=== PATIENT | female | born 1980 | race American Indian/Alaskan Native ===

== ENCOUNTER 2016-06-20 17:20 | Emergency (ER) | payer MEDICAID ==
[2016-06-20] MEDS ORDERED: TORADOL IV ONE (20:01)
--- NOTE | 2016-06-20 20:07 | Emergency Department Report ---
ED ENT HPI - General Chief complaint: Sore Throat Stated complaint: SWOLLEN THROAT/NECK/CHEST/ARMS Time Seen by Provider: 06/20/16 19:46 Source: patient Mode of arrival: Ambulatory Limitations: No Limitations - History of Present Illness Initial comments: 36-year-old female with no past medical history comes in for complaint of sore throat times couple of days she complains of lower jaw gums under her chin throat. Swelling since last night. She does report that she's been exposed to mold and the wall. She denies any nausea vomiting no fever no chills. She does report she is not able to swallow she reports that her voice is been kind of muffled she's not able to open her jaw. She reports that she's been taking Motrin 800 mg without any resolution of pain. MD complaint: tooth pain, sore throat, difficulty swallowing - Related Data Previous Rx's Medication Instructions Recorded Last Taken Type Acetaminophen/Codeine [Tylenol #3] 1 tab PO Q4HR PRN #20 tablet 06/20/16 Unknown Rx Allergies Allergy/AdvReac Type Severity Reaction Status Date / Time aspirin Allergy Hives Verified 06/20/16 17:57 Latex, Natural Rubber Allergy Anaphylaxis Verified 06/20/16 17:57 shellfish derived Allergy Shortness Verified 06/20/16 17:57 of Breath ED Dental HPI - General Chief complaint: Sore Throat Stated complaint: SWOLLEN THROAT/NECK/CHEST/ARMS Time Seen by Provider: 06/20/16 19:46 Source: patient Mode of arrival: Ambulatory Limitations: No Limitations - Related Data Previous Rx's Medication Instructions Recorded Last Taken Type Acetaminophen/Codeine [Tylenol #3] 1 tab PO Q4HR PRN #20 tablet 06/20/16 Unknown Rx Allergies Allergy/AdvReac Type Severity Reaction Status Date / Time aspirin Allergy Hives Verified 06/20/16 17:57 Latex, Natural Rubber Allergy Anaphylaxis Verified 06/20/16 17:57 shellfish derived Allergy Shortness Verified 06/20/16 17:57 of Breath ED Review of Systems ROS: Stated complaint: SWOLLEN THROAT/NECK/CHEST/ARMS Other details as noted in HPI Constitutional: denies: chills, fever ENT: throat pain, dental pain Respiratory: denies: cough Cardiovascular: denies: chest pain ED Past Medical Hx - Past Medical History Hx Hypertension: No Hx Heart Attack/AMI: No Hx Congestive Heart Failure: No Hx Diabetes: No Hx Deep Vein Thrombosis: No Hx Pulmonary Embolism: No Hx GERD: No Hx Liver Disease: No Hx Renal Disease: No Hx Sickle Cell Disease: No Hx Arthritis: No Hx Headaches / Migraines: No Hx Seizures: No Hx Kidney Stones: No Hx Asthma: Yes Hx COPD: No Hx Tuberculosis: No Hx Dementia: No Hx HIV: No Additional medical history: endometriosis, fibroids. anemia - Surgical History Hx Coronary Stent: No Hx Open Heart Surgery: No Hx Pacemaker: No Hx Internal Defibrillator: No Hx Cholecystectomy: No Hx Appendectomy: No Hx Breast Surgery: No Additional Surgical History: tubal ligation - Social History Smoking Status: Never Smoker Substance Use Type: Alcohol - Medications Home Medications: Home Medications Medication Instructions Recorded Confirmed Last Taken Type Acetaminophen/Codeine [Tylenol #3] 1 tab PO Q4HR PRN #20 tablet 06/20/16 Unknown Rx ED Physical Exam - General Limitations: No Limitations General appearance: alert, in no apparent distress - Head Head exam: Present: atraumatic, normocephalic - Eye Eye exam: Present: normal appearance, PERRL, EOMI - Expanded ENT Exam Expanded Mouth exam: Present: trismus, muffled voice, tongue normal Teeth exam: Present: dental caries, gingival enlargement Throat exam: Positive: tonsillar erythema, tonsillomegaly - Neck Neck exam: Present: tenderness, lymphadenopathy ED Course Vital Signs 06/20/16 17:55 Temperature 99.4 F Pulse Rate 70 Respiratory 19 Rate Blood Pressure 116/64 O2 Sat by Pulse 100 Oximetry ED Medical Decision Making - Lab Data Result diagrams: 06/20/16 20:44 06/20/16 20:44 - Radiology Data Radiology results: image reviewed EXAM: CT NECK W CON HISTORY: sore throat with muffle voice TECHNIQUE: Helical CT was performed from the skull base to the thoracic inlet after the administration of iodinated intravenous contrast. PRIORS: None. FINDINGS: The tonsils are diffusely mildly swollen. There is no evidence of peritonsillar or intratonsillar abscess. There are mildly enlarged submandibular and submental lymph nodes most likely reactive in nature. The parotid and submandibular glands appear normal. The thyroid appears normal. The vascular structures appear normal. The bones are unremarkable. No abnormal soft tissue masses are demonstrated. IMPRESSION: Findings are consistent with tonsillitis. No evidence of peritonsillar or intratonsillar abscess. Mild submandibular and submental adenopathy likely reactive in nature. - Medical Decision Making This patient has been evaluated by this provider in fast track. We will order a CT scan of the neck. Ordered a CBC CMP urine as well as Decadron 8 mg IV Toradol 15 mg IV. As Benadryl 50mg iv. Critical care attestation.: If time is entered above; I have spent that time in minutes in the direct care of this critically ill patient, excluding procedure time. ED Disposition Clinical Impression: Acute erythematous tonsillitis Disposition: DISCHARGED TO HOME OR SELFCARE Is pt being admited?: No Does the pt Need Aspirin: No Condition: Stable Instructions: Tonsillitis (ED) Prescriptions: Acetaminophen/Codeine [Tylenol #3] 1 tab PO Q4HR PRN #20 tablet PRN Reason: Pain Referrals: TRACIE SIN MD [Primary Care Provider] - 3-5 Days Forms: Work/School Release Form(ED)
[2016-06-20] MEDS ORDERED: DECADRON IV ONE (20:19)
[2016-06-20] MEDS ORDERED: BENADRYL ONE (20:48)
[2016-06-20] MEDS ORDERED: BENADRYL IV ONE (21:01)
[2016-06-20 21:09] LABS: Hematocrit 36.4 % (30.3-42.9); Hemoglobin 11.8 gm/dl (10.1-14.3); Mean Corpuscular HGB Conc 33 % (30-34); Mean Corpuscular Volume 75 fl (79-97); Platelet Count 310 K/mm3 (140-440); Red Blood Count 4.83 M/mm3 (3.65-5.03); Red Cell Distribution Width 17.1 % (13.2-15.2)
[2016-06-20 21:20] LABS: Mean Corpuscular Hemoglobin 25 pg (28-32)
[2016-06-20 22:25] LABS: BUN/Creatinine Ratio 21.25; Blood Urea Nitrogen 17 mg/dL (7-17); Calcium 8.9 mg/dL (8.4-10.2); Carbon Dioxide 22 mmol/L (22-30); Chloride 102.1 mmol/L (98-107); Glucose 92 mg/dL (65-100); Potassium 3.9 mmol/L (3.6-5.0); Sodium 137 mmol/L (137-145)
[2016-06-20 22:30] LABS: Anion Gap 17 mmol/L
--- NOTE | 2016-06-20 23:16 | Cat Scan Report ---
FINAL REPORT EXAM: CT NECK W CON HISTORY: sore throat with muffle voice TECHNIQUE: Helical CT was performed from the skull base to the thoracic inlet after the administration of iodinated intravenous contrast. PRIORS: None. FINDINGS: The tonsils are diffusely mildly swollen. There is no evidence of peritonsillar or intratonsillar abscess. There are mildly enlarged submandibular and submental lymph nodes most likely reactive in nature. The parotid and submandibular glands appear normal. The thyroid appears normal. The vascular structures appear normal. The bones are unremarkable. No abnormal soft tissue masses are demonstrated. IMPRESSION: Findings are consistent with tonsillitis. No evidence of peritonsillar or intratonsillar abscess. Mild submandibular and submental adenopathy likely reactive in nature.
[2016-06-20 23:54] VITALS: BP 120/78
== END 2016-06-20 23:52 | disposition home or self-care (01) ==
LOC: ED 17:20
DX: J03.90 Acute tonsillitis, unspecified (principal); J45.909 Unspecified asthma, uncomplicated; Z98.51 Tubal ligation status
CPT/HCPCS: 36415; 70491; 80048; 81025; 85027; 87116; 87430; 96374; 96375; 99284; J1100; J1200; J1885; Q9967

== ENCOUNTER 2016-10-12 23:44 | Emergency (ER) | payer MEDICAID ==
--- NOTE | 2016-10-13 01:00 | XRay Report ---
FINAL REPORT EXAM: XR HAND 3 LT HISTORY: numb, swelling, prior impact, send for report COMPARISON: None available. FINDINGS: Three views of the left hand obtained. Mild soft tissue swelling. Bony structures are intact. Joint spaces are preserved. No acute fracture dislocation. IMPRESSION: No acute bony abnormality.
[2016-10-13] MEDS ORDERED: NORCO 10/325 PO ONE (05:02)
--- NOTE | 2016-10-13 05:02 | Emergency Department Report ---
Upper Extremity - HPI Chief Complaint: Extremity Injury, Upper Stated Complaint: LEFT HAND SWELLING/PAIN Time Seen by Provider: 10/13/16 04:24 Upper Extremity: Left Hand Severity: mild Symptoms: Yes Pain with Movement, Yes Limited Range of Movement, Yes Swelling, No Deformity, No Numbness, No Weakness, No Bruising/Ecchymosis, No Laceration or Abrasion Other History: 36-year-old female presents with complaint of left hand pain. Patient states that 2 weeks ago she injured her hand in a accident at work. As per patient a package of sodas briefly crushed her hand. She states that she reported this to her workplace who sent her to Workmen's [employer]. physician and regulatory specialist. Patient states she had x-rays which were negative for fractures. Patient states that she has had difficulty moving her left distal fingers for the last 2 weeks. Patient states that she was taking Benadryl but no other medicines for pain. When I questioned patient on why she was taking Benadryl for pain because that does not make sense patient was unable to give me a clear answer why. Patient states that none of the physician she saw prescribed her any pain medicine. Patient denies any fever or chills. ED Review of Systems ROS: Stated complaint: LEFT HAND SWELLING/PAIN Other details as noted in HPI Constitutional: denies: chills, fever Eyes: denies: eye pain, eye discharge, vision change ENT: denies: ear pain, throat pain Respiratory: denies: cough, shortness of breath, wheezing Cardiovascular: denies: chest pain, palpitations Endocrine: no symptoms reported Gastrointestinal: denies: abdominal pain, nausea, diarrhea Genitourinary: denies: urgency, dysuria, discharge Musculoskeletal: as per HPI, joint swelling, arthralgia. denies: back pain Skin: denies: rash, lesions Neurological: denies: headache, weakness, paresthesias Psychiatric: denies: anxiety, depression Hematological/Lymphatic: denies: easy bleeding, easy bruising ED Past Medical Hx - Past Medical History Previous Medical History?: Yes Hx Hypertension: No Hx Heart Attack/AMI: No Hx Congestive Heart Failure: No Hx Diabetes: No Hx Deep Vein Thrombosis: No Hx Pulmonary Embolism: No Hx GERD: No Hx Liver Disease: No Hx Renal Disease: No Hx Sickle Cell Disease: No Hx Arthritis: No Hx Headaches / Migraines: No Hx Seizures: No Hx Kidney Stones: No Hx Asthma: Yes Hx COPD: No Hx Tuberculosis: No Hx Dementia: No Hx HIV: No Additional medical history: endometriosis, fibroids. anemia - Surgical History Past Surgical History?: Yes Hx Coronary Stent: No Hx Open Heart Surgery: No Hx Pacemaker: No Hx Internal Defibrillator: No Hx Cholecystectomy: No Hx Appendectomy: No Hx Breast Surgery: No Additional Surgical History: tubal ligation - Social History Smoking Status: Never Smoker Substance Use Type: None - Medications Home Medications: Home Medications Medication Instructions Recorded Confirmed Last Taken Type Acetaminophen/Codeine [Tylenol #3] 1 tab PO Q4HR PRN #20 tablet 06/20/16 Unknown Rx HYDROcodone/APAP 5-325 [[place] 1 each PO Q6HR PRN #15 tablet 10/13/16 Unknown Rx 5/325] Upper Extremity Exam - Exam General: Vital signs noted. No distress. Alert and acting appropriately. Head and Torso: No HEENT Abnormality, No Neck Tenderness, No Chest/Lungs Abnormality, No Abdominal Tenderness, No Back Tenderness Shoulder Exam: Yes Normal Range of Motion in Shoulder, No Shoulder Tenderness, No Clavicle Tenderness, No Shoulder Deformity, No AC Joint Tenderness Arm Exam: No Arm/Humerus Tenderness, No Arm Deformity Elbow: No Elbow Tenderness, No Normal Range of Motion in Elbow, No Elbow Deformity Forearm: No Forearm Tenderness, No Forearm Deformity, No Pain with Pronation, No Pain with Supination Wrist: Yes Normal ROM in Wrist (wrist flexion and extension intact), No Wrist Tenderness, No Wrist Deformity, No Snuffbox Tenderness (she does not have any snuffbox tenderness), No Pain with Axial Thumb Compression Hand: Yes Normal ROM in Digit(s), No Hand Tenderness, No Hand Deformity, No Digit Tenderness, No Digit(s) Deformity, No Tendon Dysfunction CMS Exam: Yes Normal Distal Pulses (the radial and brachial pulses strong to palpation), Yes Normal Capillary Refill (less than 1 second in all fingers), No Broken Skin, No Normal Distal Sensation (distal sensation all fingers intact) Hand L/R Front: 1 - Mild pain here Hand L/R Back: 1 - Mild pain on palpation here but not an anatomical snuffbox. No visible cellulitis erythema minimal amount of swelling ED Course Vital Signs 10/13/16 00:06 Temperature 98.8 F Pulse Rate 71 Respiratory 15 Rate Blood Pressure 141/88 [Right] O2 Sat by Pulse 97 Oximetry ED Medical Decision Making - Medical Decision Making A/P: Left hand sprain, possible carpal tunnel versus ulnar neuropathy 1- left wrist volar splint for comfort and support 2- short course [place] as patient is allergic to NSAIDs. Patient experienced moderate relief of pain with [place]. 3- follow-up with orthopedics and outpatient neurology 4-as patient states that she has some difficulty ranging her fingers and intermittent numbness and paresthesias isolated to left distal fingers and hand will refer her to neurology and orthopedics. Patient may require outpatient MRI or nerve conduction testing to determine if she has a distal neuropathy of the hand/wrist. No clinical signs of tenosynovitis. Xray shows no fractures. No clinical signs of infection. Distal pulses and capillary refill intact Critical care attestation.: If time is entered above; I have spent that time in minutes in the direct care of this critically ill patient, excluding procedure time. ED Disposition Clinical Impression: Hand pain, left Disposition: DISCHARGED TO HOME OR SELFCARE Is pt being admited?: No Does the pt Need Aspirin: No Condition: Stable Instructions: Wrist Injury (ED), Carpal Tunnel Syndrome (ED), Hand Sprain (ED) , Paresthesia (ED) Prescriptions: HYDROcodone/APAP 5-325 [[place] 5/325] 1 each PO Q6HR PRN #15 tablet PRN Reason: Pain Referrals: [facility] [Provider Group] - 3-5 Days MARZENA DELGADILLO MD [Staff Physician] - 3-5 Days TRACIE SIN MD [Primary Care Provider] - 3-5 Days JAYNE CISNEROS MD [Staff Physician] - 3-5 Days Forms: Work/School Release Form(ED) Time of Disposition: 06:49
[2016-10-13 07:11] VITALS: BP 137/88
== END 2016-10-13 07:14 | disposition home or self-care (01) ==
LOC: ED 23:44
DX: M79.642 Pain in left hand (principal); J45.909 Unspecified asthma, uncomplicated; W23.0XXA Caught, crushed, jammed, or pinched between moving objects, initial encounter; Y93.9 Activity, unspecified; Y92.9 Unspecified place or not applicable; Y99.9 Unspecified external cause status
CPT/HCPCS: 99283

== ENCOUNTER 2016-11-04 14:00 | Emergency (ER) | payer MEDICAID ==
[2016-11-04] MEDS ORDERED: DUONEB 0.5 MG-3 MG/3 ML SOLN IH ONE ×2 (14:59→17:44)
[2016-11-04] MEDS ORDERED: MOTRIN PO ONE (15:00)
--- NOTE | 2016-11-04 15:03 | Emergency Department Report ---
Chief Complaint: Sore Throat Stated Complaint: HARD TO SWALLOW/IRVING Time Seen by Provider: 11/04/16 14:58 - HPI History of Present Illness: pt c/o sore throat x 2 days. pt states her throat feels swollen pt also has a hx of asthma. - ROS Review of Systems: + fever + sore throat - cough - Exam Vital Signs: Vital Signs 11/04/16 14:54 Temperature 100.6 F H Pulse Rate 90 Respiratory 18 Rate Blood Pressure 143/102 O2 Sat by Pulse 100 Oximetry Physical Exam: exudative pharyngitis - no air way obstruction no peritonsilar mass MSE screening note: Focused history and physical exam performed. Due to findings the following was ordered: meds pt states she can take motrin, will order liquid due to her c/o sore throat ED Disposition for MSE Condition: Stable
[2016-11-04] MEDS ORDERED: BICILLIN L-A IM ONE (18:12)
[2016-11-04] MEDS ORDERED: MAGIC MOUTHWASH PO ONE (18:30)
[2016-11-04 20:00] VITALS: BP 119/74
--- NOTE | 2016-11-05 16:31 | Emergency Department Report ---
Entered by CHRIS MANUEL, acting as scribe for KEE DE ANDA PA. ED ENT HPI - General Chief complaint: Sore Throat Stated complaint: HARD TO SWALLOW/IRVING Time Seen by Provider: 11/04/16 14:58 Source: patient Mode of arrival: Ambulatory Limitations: No Limitations - History of Present Illness Initial comments: 36 female with Hx of asthma, presents with sore throat that started 3 days ago, is gradually worsening and exacerbated by swallowing. Sx includes difficulty swallowing, mild cough, subjectve fever and difficulty breathing but pt denies chills or n/v. No additional Sx. MD complaint: sore throat, difficulty swallowing -: days(s) (3) Location: throat Severity: moderate Severity scale (0 -10): 5 Quality: aching Consistency: constant Improves with: none Worsens with: swallowing Associated Symptoms: fever, cough, pain with swallowing, sore throat. denies: gum swelling, toothache, tinnitus, hearing loss, discharge from ear, rhinorrhea - Related Data Previous Rx's Medication Instructions Recorded Last Taken Type Acetaminophen/Codeine [Tylenol #3] 1 tab PO Q4HR PRN #20 tablet 06/20/16 Unknown Rx HYDROcodone/APAP 5-325 [[place] 1 each PO Q6HR PRN #15 tablet 10/13/16 Unknown Rx 5/325] ALBUTEROL Inhaler [ProAir HFA 2 puff IH QID PRN #1 pump 11/04/16 Unknown Rx Inhaler] Ibuprofen [Motrin] 600 mg PO Q8H PRN #30 tablet 11/04/16 Unknown Rx Allergies Allergy/AdvReac Type Severity Reaction Status Date / Time aspirin Allergy Hives Verified 06/20/16 17:57 dexamethasone [From Decadron] Allergy Itching Verified 06/20/16 23:54 dexamethasone sod phosphate Allergy Itching Verified 06/20/16 23:54 [From Decadron] Latex, Natural Rubber Allergy Anaphylaxis Verified 06/20/16 17:57 shellfish derived Allergy Shortness Verified 06/20/16 17:57 of Breath ED Dental HPI - General Chief complaint: Sore Throat Stated complaint: HARD TO SWALLOW/IRVING Time Seen by Provider: 11/04/16 14:58 Source: patient Mode of arrival: Ambulatory Limitations: No Limitations - Related Data Previous Rx's Medication Instructions Recorded Last Taken Type Acetaminophen/Codeine [Tylenol #3] 1 tab PO Q4HR PRN #20 tablet 06/20/16 Unknown Rx HYDROcodone/APAP 5-325 [[place] 1 each PO Q6HR PRN #15 tablet 10/13/16 Unknown Rx 5/325] ALBUTEROL Inhaler [ProAir HFA 2 puff IH QID PRN #1 pump 11/04/16 Unknown Rx Inhaler] Ibuprofen [Motrin] 600 mg PO Q8H PRN #30 tablet 11/04/16 Unknown Rx Allergies Allergy/AdvReac Type Severity Reaction Status Date / Time aspirin Allergy Hives Verified 06/20/16 17:57 dexamethasone [From Decadron] Allergy Itching Verified 06/20/16 23:54 dexamethasone sod phosphate Allergy Itching Verified 06/20/16 23:54 [From Decadron] Latex, Natural Rubber Allergy Anaphylaxis Verified 06/20/16 17:57 shellfish derived Allergy Shortness Verified 06/20/16 17:57 of Breath ED Review of Systems Comment: All other systems reviewed and negative Constitutional: fever. denies: chills ENT: throat pain, other (difficulty swallowing) Respiratory: cough (mild), other (difficulty breathing). denies: shortness of breath Cardiovascular: denies: chest pain Gastrointestinal: denies: abdominal pain, nausea, vomiting Neurological: denies: headache, weakness, numbness ED Past Medical Hx - Past Medical History Hx Hypertension: No Hx Heart Attack/AMI: No Hx Congestive Heart Failure: No Hx Diabetes: No Hx Deep Vein Thrombosis: No Hx Pulmonary Embolism: No Hx GERD: No Hx Liver Disease: No Hx Renal Disease: No Hx Sickle Cell Disease: No Hx Arthritis: No Hx Headaches / Migraines: No Hx Seizures: No Hx Kidney Stones: No Hx Asthma: Yes Hx COPD: No Hx Tuberculosis: No Hx Dementia: No Hx HIV: No Additional medical history: endometriosis, fibroids. anemia - Surgical History Hx Coronary Stent: No Hx Open Heart Surgery: No Hx Pacemaker: No Hx Internal Defibrillator: No Hx Cholecystectomy: No Hx Appendectomy: No Hx Breast Surgery: No Additional Surgical History: tubal ligation - Social History Smoking Status: Never Smoker Substance Use Type: None - Medications Home Medications: Home Medications Medication Instructions Recorded Confirmed Last Taken Type Acetaminophen/Codeine [Tylenol #3] 1 tab PO Q4HR PRN #20 tablet 06/20/16 Unknown Rx HYDROcodone/APAP 5-325 [[place] 1 each PO Q6HR PRN #15 tablet 10/13/16 Unknown Rx 5/325] ALBUTEROL Inhaler [ProAir HFA 2 puff IH QID PRN #1 pump 11/04/16 Unknown Rx Inhaler] Ibuprofen [Motrin] 600 mg PO Q8H PRN #30 tablet 11/04/16 Unknown Rx ED Physical Exam - General Limitations: No Limitations - Other Other exam information: GENERAL: Patient is alert and oriented x 3. No apparent distress, normal gait, atraumatic. HEAD: Head is normocephalic and atraumatic. EYES: Extraocular movements are intact. Pupils are equal, round, and reactive to light and accommodation. EARS: Symmetrical, atraumatic, non tender, ear canal clear with moderate cerumen , tympanic membrane non inflamed. NOSE: Nose symmetrical, nontender. Nares appeared normal. MOUTH:Mouth is well hydrated and without lesions. Mucous membranes are moist. Uvula midline. Tongue not elevated. Posterior pharynx clear, no exudate or lesions. Tonsils are erythematous and swollen. Patent airway. LUNGS: Clear to auscultation. Non labor breathing. No intercostal retractions. Right sided wheezing. NECK: anterior cervical tenderness and lymphadenopathy, no TMJ tenderness. HEART: Regular rate and rhythm without murmur, rubs or gallops. No reproducible SKIN: Warm and dry. No lesions, ulceration or induration present NEUROLOGIC: No focal deficit., Cranial nerves II - XII are grossly intact. No loss of sensation. No facial droop. Negative romberg.. PSYCHIATRIC: Mood is congruent with affect. Denies suicidal or homicidal ideations ED Course Vital Signs 11/04/16 11/04/16 11/04/16 14:54 17:48 17:50 Temperature 100.6 F H Pulse Rate 90 Pulse Rate [ 84 86 Bilateral Lower Lobe] Respiratory 18 Rate Respiratory 18 18 Rate [Bilateral Lower Lobe] Blood Pressure 143/102 Blood Pressure [Left] O2 Sat by Pulse 100 Oximetry 11/04/16 19:59 Temperature Pulse Rate 72 Pulse Rate [ Bilateral Lower Lobe] Respiratory 20 Rate Respiratory Rate [Bilateral Lower Lobe] Blood Pressure Blood Pressure 119/74 [Left] O2 Sat by Pulse 98 Oximetry ED Medical Decision Making - Medical Decision Making 25-year-old female presents with strep pharyngitis. ED course: Rapid strep tests ordered rapid strep test positive. Patient received 1 dose of Magic mouthwash, 1.2 million units of penicillin, 125mg of prednisone. Fever responsive to one dose of Tylenol. Vital signs stable patient is in no acute or respiratory distress. Patient received one breathing treatment and that was ordered in triage prior to my evaluation of the patient. She stated she had some difficulty breathing earlier was evident asthma exacerbation Discussed findings with patient about the positive strep. Discussed treatment in ED with patient Discussed the patient that strep throat is contagious and to limit sharing spoons and such. Discussed with patient follow-up with primary care physician. Patient verbally states he understands and will comply to follow-up. . ED Disposition Clinical Impression: Strep pharyngitis, Acute bacterial tonsillitis Disposition: TO HOME OR SELFCARE Is pt being admited?: No Does the pt Need Aspirin: No Condition: Stable Instructions: Strep Throat (ED), Tonsillitis (ED) Prescriptions: ALBUTEROL Inhaler [ProAir HFA Inhaler] 2 puff IH QID PRN #1 pump PRN Reason: Shortness Of Breath Ibuprofen [Motrin] 600 mg PO Q8H PRN #30 tablet PRN Reason: Pain Referrals: PRIMARY CARE,MD [Primary Care Provider] - 3-5 Days [facility] [Outside] - 3-5 Days [facility] [Outside] - 3-5 Days [facility] [Outside] - 3-5 Days Forms: Accompanied Note, Work/School Release Form(ED) This documentation as recorded by the KALEB ambriz RYAN,accurately reflects the service I personally performed and the decisions made by ,KEE DE ANDA PA.
== END 2016-11-04 20:01 | disposition home or self-care (01) ==
LOC: ED 14:00
DX: J03.90 Acute tonsillitis, unspecified (principal); J45.909 Unspecified asthma, uncomplicated; Z98.51 Tubal ligation status; Z88.8 Allergy status to other drugs, medicaments and biological substances; Z88.6 Allergy status to analgesic agent; Z91.040 Latex allergy status; Z91.013 Allergy to seafood
CPT/HCPCS: 87430; 94640; 96372; 99283; J0561; J2930